=== PATIENT | male | born 1950 | race African-American/Black ===

== ENCOUNTER 2023-04-25 07:22 | Inpatient (IN) | payer OTHER ==
[~2023-04-25] VITALS: Ht 167.6 cm; Wt 71.2 kg
--- NOTE | 2023-04-25 07:35 | NUR ---
FELISHARA79 FOUND WANDERING OUTSIDE DAUGHTER'S APARTMENT, BLOOD SUGAR 121. WELL KNOWN TIME 1HOUR PTC. DR BELL AT BEDSIDE FOR EVAL
--- NOTE | 2023-04-25 07:38 | NUR ---
joann drawn and sent to lab
--- NOTE | 2023-04-25 07:45 | NUR ---
PROVIDED PT WITH URINAL AWAITING URINE SAMPLE
[2023-04-25] MEDS ORDERED: IV NS 0.9% 1,000 ML BAG IV ONE (08:00)
[2023-04-25 08:01] LABS: BASOPHILS % (AUTO) 0.5 % (0.0-2.0); EOSINOPHILS % (AUTO) 0.5 % (0.0-6.0); HEMATOCRIT 39 % (39-51); HEMOGLOBIN 12.3 g/dL (13.5-17.5); LYMPHOCYTES % (AUTO) 15.7 % (20.0-44.0); MEAN CORPUSCULAR HGB CONC 32 g/dl (31.0-36.0); MEAN CORPUSCULAR VOLUME 96 fL (80-96); MONOCYTES # (AUTO) 0.7 K/uL (0.1-1.30); MONOCYTES % (AUTO) 11.3 % (2.0-12.0); NEUTROPHILS # (AUTO) 4.7 K/uL (1.8-8.9); PLATELET COUNT (AUTO) 306 K/uL (150-450); RED BLOOD CELL COUNT(AUTO) 4.05 MIL/uL (4.5-6.0); WHITE BLOOD COUNT (AUTO) 6.5 K/uL (4.3-11.0)
--- NOTE | 2023-04-25 08:30 | NUR ---
GLUCOSE CHECKED 108 PER LAB Patient is resting comfortably in bed with eyes closed. Easily aroused. VSS
[2023-04-25 08:31] LABS: CALCIUM, SERUM 9.5 mg/dL (8.5-10.1); CARBON DIOXIDE 27 mmol/L (21-32); CHLORIDE 103 mmol/L (98-107); CREATININE 1.3 mg/dL (0.6-1.3); GLUCOSE 120 mg/dL (74-106); POTASSIUM 3.4 mmol/L (3.5-5.1); SODIUM SERUM 139 mmol/L (136-145); UREA NITROGEN, BLOOD 23 mg/dL (7-18)
[2023-04-25 08:33] LABS: SERUM AMMONIA 8 umol/L (11-32)
[2023-04-25 08:37] LABS: ALANINE AMINOTRANSFERASE 21 U/L (12-78); ALBUMIN 4.1 g/dL (3.4-5.0); ALKALINE PHOSPHATASE 78 U/L (46-116); ASPARTATE AMINOTRANSFERASE 19 U/L (15-37); BILIRUBIN,DIRECT 0.4 mg/dL (0.0-0.2); BILIRUBIN,TOTAL 2.3 mg/dL (0.2-1.0); TOTAL PROTEIN, SERUM 7.8 g/dL (6.4-8.2)
--- NOTE | 2023-04-25 08:40 | NUR ---
PT TO CT VIA MARIE
--- NOTE | 2023-04-25 08:40 | NUR ---
PT TAKEN TO CT VIA MARIE
[2023-04-25 08:47] LABS: ALCOHOL, BLOOD < 3 mg/dL (0-10)
--- NOTE | 2023-04-25 08:48 | NUR ---
PT RETURNED TO ER BED [address]
[2023-04-25 08:58] LABS: BILIRUBIN,URINE 1+ (NEGATIVE); COLOR,URINE DARK YELLOW (YELLOW); LEUKOCYTE ESTERASE ,URINE NEGATIVE (NEGATIVE); NITRITE, URINE NEGATIVE (NEGATIVE); PROTEIN,URINE 1+ mg/dl (NEGATIVE); UGLUCOSE NEGATIVE (NEGATIVE)
--- NOTE | 2023-04-25 09:08 | NUR ---
PT BACK FROM CT
[2023-04-25 09:10] LABS: THYROID STIMULATING HORMONE 2.087 uIU/mL (0.358-3.74)
[2023-04-25 09:18] LABS: BACTERIA,URINE Rare /HPF (None Seen); RBC,URINE 0-2 /HPF (0-2); SQUAMOUS EPITHELIAL CELL,UR Few /HPF (None Seen); WBC,URINE 0-2 /HPF (0-3)
--- NOTE | 2023-04-25 09:45 | NUR ---
at bedside with jose g looking a number of her daugther.
--- NOTE | 2023-04-25 10:26 | NUR ---
JUST TALKED TO ADMITTING, STILL INVESTIGATING HOW TO GET IN TOUCH WITH THE DAUGTHER.
--- NOTE | 2023-04-25 11:07 | NUR ---
PER TERRIE ORLANDO ([phone]) WHO CLAIMS TO BE THE PATIENT`S TENANT STATES THAT THE PATIENT`S CURRENT ADDRESS IS [address] [place] [address]. PER MR PERRY THE PATIENT HAS SON, DAUGHTER AND EX- BUT HE DOES NOT HAVE ANY CONTACT INFORMATION.
--- NOTE | 2023-04-25 11:20 | NUR ---
DR BELL NOTIFIED REGARDING STATUS OF FAMILY WHEREABOUTS, NO SUCCESS. ONLY A NEIGHBOR ANSWERED, BUT NOT A CAREGIVER FOR THE PATIENT.
--- NOTE | 2023-04-25 11:20 | NUR ---
COVID SWAB DONE SENT TO LAB.
--- NOTE | 2023-04-25 13:04 | NUR ---
EMT AT BEDSIDE FOR MRSA SWAB, SENT TO LAB.
[2023-04-25] MEDS ORDERED: ACETAMINOPHEN 325 MG TABLET PO PRN (14:00)
[2023-04-25] MEDS ORDERED: MAGNESIUM HYDROXIDE 30 ML UDC PO PRN (14:00)
[2023-04-25] MEDS ORDERED: ONDANSETRON HCL/PF 4 MG/2 ML VIAL IVP PRN (14:00)
[2023-04-25] MEDS ORDERED: MAG HYDROX/AL HYDROX/SIMETH 30 ML UDC PO PRN (14:00)
[2023-04-25] MEDS ORDERED: HYDROCODONE/APAP 5/325MG TABLET PO PRN (14:00)
[2023-04-25] MEDS ORDERED: Z GUARD REMEDY 4 OZ OINT TP PRN (14:00)
--- NOTE | 2023-04-25 14:29 | NUR ---
us tech at bedside
--- NOTE | 2023-04-25 14:45 | NUR ---
308-2. ADMITTING MADE AWARE. RACHANA WILL BE RECEIVING NURSE.
--- NOTE | 2023-04-25 14:54 | NUR ---
REPORT GIVEN TO NURSE MIRIAM FOR MARI
--- NOTE | 2023-04-25 15:31 | NUR ---
PT [facility]SFERR[facility] TO [facility]IA [facility]
--- NOTE | 2023-04-25 15:35 | NUR ---
NUCLEAR POWERPLANT MECHANIC HELPER NOTES PT ARRIVED AT UNIT AT 1535 VIA GURNEY. PT AMBULATORY WITH ASSISTANCE. PRE VITALS WERE TAKEN. PT ALERT/ORIENTED X1-2 WITH CONFUSION. SKIN INTACT. STABLE ON ROOM AIR. PT IS FULL CODE WITH NO KNOWN ALLERGIES. ALL BELONGINGS CHECKED AND RECONCILED. IV ACCESS OON LAC #20 G SL. FALL SAFETY MEASURES IN PLACED. BED LOCKED IN LOWEST POSITION. SIDE RAILS UP X2. CALL LIGHT WITHIN EASY REACH. WILL CONTINUE TO MONITOR.
[2023-04-25] MEDS: IV 1/2NS 1000 ML 1,000 ML IV PRN (16:26)
--- NOTE | 2023-04-25 18:43 | NUR ---
MS RN CLOSING NOTES PT RESTING IN BED, ALERT/ORIENTED X1-2, CONFUSED. IV ACCESS ON LAC #20 G RUNING 0.45% NS AT 75 ML/HR. NO DISTRESS NOTED. FALL SAFETY MEASURES IN PLACED. BED LOCKED IN LOWEST POSITION. SIDE RAILS UP X2. CALL LIGHT WITHIN REACH. WILL ENDORSE TO NEXT SHIFT
--- NOTE | 2023-04-25 19:45 | NUR ---
MS RN OPENING NOTE PATIENT SLEEPING IN BED, EASILY AWAKENED, PT ALERT/ORIENTED X 1-2. PATIENT STABLE ON RA, NO S/S OF DISTRESS OR SOB NOTED, BREATHING EVEN AND UNLABORED. IV ACCESS ON LAC #20G INTACT AND INFUSING 1/2 NS @ 75 ML/HR. SAFETY MEASURES IN PLACE: CALL LIGHT AND BEDSIDE TABLE WITHIN REACH, SIDE RAILS UP X 2, BED LOCKED IN LOWEST POSITION, HOB ELEVATED, BED ALARM ON. WILL CONTINUE TO MONITOR PATIENT
[2023-04-25 20:00] VITALS: BP 151/85
[2023-04-26 06:03] LABS: BASOPHILS % (AUTO) 0.9 % (0.0-2.0); EOSINOPHILS % (AUTO) 3.8 % (0.0-6.0); HEMATOCRIT 37 % (39-51); HEMOGLOBIN 11.9 g/dL (13.5-17.5); LYMPHOCYTES # (AUTO) 1.4 K/uL (0.8-4.8); LYMPHOCYTES % (AUTO) 38.8 % (20.0-44.0); MEAN CORPUSCULAR HGB CONC 32 g/dl (31.0-36.0); MEAN CORPUSCULAR VOLUME 95 fL (80-96); MONOCYTES # (AUTO) 0.6 K/uL (0.1-1.30); MONOCYTES % (AUTO) 15.7 % (2.0-12.0); NEUTROPHILS # (AUTO) 1.5 K/uL (1.8-8.9); NEUTROPHILS % (AUTO) 40.8 % (43.0-81.0); PLATELET COUNT (AUTO) 280 K/uL (150-450); WHITE BLOOD COUNT (AUTO) 3.6 K/uL (4.3-11.0)
[2023-04-26 06:41] LABS: CALCIUM, SERUM 9.1 mg/dL (8.5-10.1); CARBON DIOXIDE 25 mmol/L (21-32); CHLORIDE 107 mmol/L (98-107); CREATININE 1.2 mg/dL (0.6-1.3); GLUCOSE 85 mg/dL (74-106); MAGNESIUM 2.1 mg/dL (1.8-2.4); PHOSPHORUS 3.7 mg/dL (2.5-4.9); SODIUM SERUM 141 mmol/L (136-145); UREA NITROGEN, BLOOD 19 mg/dL (7-18)
--- NOTE | 2023-04-26 06:46 | NUR ---
MS RN CLOSING NOTE PATIENT SLEEPING IN BED, EASILY AWAKENED, PT ALERT/ORIENTED X 2, FORGETFUL/CONFUSED AT TIMES. PATIENT STABLE ON RA, NO S/S OF DISTRESS OR SOB NOTED, BREATHING EVEN AND UNLABORED. IV ACCESS ON RAC #20G INTACT AND INFUSING 1/2 NS @ 75 ML/HR. NO SIGNIFICANT CHANGES THIS SHIFT, MEDICATIONS GIVEN ORDERED, PT NEEDS MET THROUGHOUT SHIFT. PATIENT AMBULATED TO BATHROOM WITH SBA. SAFETY MEASURES IN PLACE: CALL LIGHT AND BEDSIDE TABLE WITHIN REACH, SIDE RAILS UP X 2, BED LOCKED IN LOWEST POSITION, HOB ELEVATED, BED ALARM ON. WILL ENDORSE TO DAYSHIFT RN FOR CONTINUITY OF CARE
[2023-04-26 07:00] VITALS: BP 152/84
--- NOTE | 2023-04-26 07:42 | NUR ---
RN OPENING NOTES PATIENT ON BED AWAKE A/O X 1-2. NO SIGN OF PAIN NOTED AT THIS TIME. ON ROOM AIR BREATHING EVENLY AND UNLABORED, NO DISTRESS OF SOB NOTED. IV ACCESS ON RAC #20G INTACT PATENT AND FLUSHING WELL, RUNNING 1/2 NS @ 75 ML/HR. FALL AND SAFETY MEASURE IN PLACE, BED IN LOWEST LOCKED POSITION, BED ALARM ON, CALL LIGHT AND TABLE WITHIN EASY REACH, SIDE RAILS UP X2. WILL CONTINUE TO MONITOR.
[2023-04-26] MEDS: PANTOPRAZOLE 40 MG TABLET.DR PO SCH (08:09)
[2023-04-26] MEDS: IV 1/2NS 1000 ML 1,000 ML IV PRN (10:18)
[2023-04-26 12:47] LABS: BAND % (MANUAL) 6 % (0.0-5.0); BASOPHILS % (MANUAL) 0 % (0.0-2.0); EOSINOPHILS % (MANUAL) 0 % (0-4); LYMPHOCYTES % (MANUAL) 34 % (16-48); MONOCYTES % (MANUAL) 14 % (0-11.0); NEUTROPHILS % (MANUAL) 46 (42-76)
[2023-04-26 16:00] VITALS: BP 131/78
--- NOTE | 2023-04-26 18:34 | NUR ---
RN CLOSING NOTES PATIENT ON BED AWAKE A/O X 1-2. NO SIGN OF PAIN NOTED AT THIS TIME. ON ROOM AIR BREATHING EVENLY AND UNLABORED, NO DISTRESS OF SOB NOTED. IV ACCESS ON RAC #20G INTACT PATENT AND FLUSHING WELL. SCHEDULE MEDICATIONS ADMINISTERED. FALL AND SAFETY MEASURE IN PLACE, BED IN LOWEST LOCKED POSITION, BED ALARM ON, CALL LIGHT AND TABLE WITHIN EASY REACH, SIDE RAILS UP X2. ALL NEEDS ATTENDED AND ANTICIPATED. WILL ENDORSE TO PHOTO BOOTH OPERATOR NURSE.
--- NOTE | 2023-04-26 19:30 | NUR ---
MS RN OPENING NOTE PATIENT SLEEPING IN BED, EASILY AWAKENED, PT ALERT/ORIENTED X 1-2, FORGETFUL/CONFUSED. PATIENT STABLE ON RA, NO S/S OF DISTRESS OR SOB NOTED, BREATHING EVEN AND UNLABORED. IV ACCESS ON RAC #20G INTACT AND SALINE LOCKED. SAFETY MEASURES IN PLACE: CALL LIGHT AND BEDSIDE TABLE WITHIN REACH, SIDE RAILS UP X 2, BED LOCKED IN LOWEST POSITION, HOB ELEVATED, BED ALARM ON. WILL CONTINUE TO MONITOR PATIENT
[2023-04-26 20:45] VITALS: BP 153/91
--- NOTE | 2023-04-27 06:57 | NUR ---
MS RN CLOSING NOTE PATIENT SLEEPING IN BED, EASILY AWAKENED, PT ALERT/ORIENTED X 2, FORGETFUL/CONFUSED AT TIMES. PATIENT STABLE ON RA, NO S/S OF DISTRESS OR SOB NOTED, BREATHING EVEN AND UNLABORED. IV ACCESS ON RAC #20G INTACT AND SALINE LOCKED. NO SIGNIFICANT CHANGES THIS SHIFT, PT NEEDS MET THROUGHOUT SHIFT. PATIENT AMBULATED TO BATHROOM WITH SBA. SAFETY MEASURES IN PLACE: CALL LIGHT AND BEDSIDE TABLE WITHIN REACH, SIDE RAILS UP X 2, BED LOCKED IN LOWEST POSITION, HOB ELEVATED, BED ALARM ON. WILL ENDORSE TO DAYSHIFT RN FOR CONTINUITY OF CARE
[2023-04-27 07:00] VITALS: BP 150/90
[2023-04-27] MEDS: PANTOPRAZOLE 40 MG TABLET.DR PO SCH (07:59)
--- NOTE | 2023-04-27 08:03 | NUR ---
MS RN OPENING NOTE RECEIVED PATIENT SLEEPING IN BED, EASILY AROUSED, AOX1-2, CONFUSED/FORGETFUL, CALM, ABLE TO MAKE NEEDS KNOWN AND FOLLOWED SIMPLE COMMANDS. ON ROOM AIR WITHOUT ANY DIFFICULTY, NO S/S OF DISTRESS OR SOB NOTED. IV ACCESS ON RFA G#20, CLEAN, PATENT, INTACT AND SALINE LOCKED. DENIED PAIN NOR DISCOMFORT AT THE MOMENT. SAFETY MEASURES IN PLACE: BED LOCKED AND IN LOWEST POSITION, HOB ELEVATED, CALL LIGHT AND BEDSIDE TABLE WITHIN REACH, SIDE RAILS UP X 2, BED ALARM ON. WILL CONTINUE TO MONITOR.
[2023-04-27 16:12] VITALS: BP 149/87
--- NOTE | 2023-04-27 17:37 | NUR ---
RN NOTES - PATIENT IS ADAMANT TO LEAVE, STILL ALTERED, UNABLE TO SAY DATE/TIME AND LOCATION. REFUSED CAROTID BUT AGREED TO DO 2D ECHO.
--- NOTE | 2023-04-27 17:44 | NUR ---
RN NOTES - PATIENT MENTIONED HE LIVE AT [address] [place], [place] [id number]. CHARGE NURSE AND AWARE.
--- NOTE | 2023-04-27 17:46 | NUR ---
RN NOTES - DR ALEGRIA ORDERED HALDOL 2MG IM ONCE FOR AGITATION/COMBATIVE BEHAVIOR
[2023-04-27] MEDS ORDERED: HALOPERIDOL LACTATE INJ 5 MG/ML VIAL IM ONE (18:00)
[2023-04-27] MEDS ORDERED: HALOPERIDOL LACTATE INJ 5 MG/ML VIAL IM PRN (18:30)
--- NOTE | 2023-04-27 18:51 | NUR ---
MS RN CLOSING NOTE PATIENT SITTING ON THE EDGE OF THE BED, AWAKE, AOX1-2, CONFUSED/FORGETFUL, COOPERATIVE, FOLLOWED SIMPLE COMMANDS. ON ROOM AIR WITHOUT ANY DIFFICULTY, STILL WITH NO S/S OF DISTRESS OR SOB NOTED. IV ACCESS ON RFA G#20 SALINE LOCKED. NO COMPLAINTS OF PAIN NOR DISCOMFORT. WILL ENDORSE HALDOL IM PRN TO THE NURSE ORDERED BY MD IN CASE PT WANTS TO LEAVE. ALL NEEDS MET, ALL DUE MEDS GIVEN. SAFETY MEASURES MAINTAINED: BED LOCKED AND IN LOWEST POSITION, HOB ELEVATED, CALL LIGHT AND BEDSIDE TABLE WITHIN REACH, SIDE RAILS UP X 2, BED ALARM ON. WILL ENDORSE TO SERVICES ENGINEER NURSE.
--- NOTE | 2023-04-27 19:29 | NUR ---
RN NOTES - PATIENT GAVE [phone] PHONE NUMBER FOR MS PURVI LANIER, "EX MOTHER IN LAW", CALLED THE NUMBER AND SPOKE TO MS. LANIER, CONFIRMED THAT SHE KNOWS THE PATIENT AND WILL CALL THE CLOSEST RELATIVE, GIVEN THE NUMBER TO [phone] TO CALL BACK. RELAYED TO THE NURSE.
--- NOTE | 2023-04-27 19:37 | NUR ---
MS RN OPENING NOTES - RECEIVED PATIENT LAYING IN BED AWAKE. A/O X1-2, CONFUSED AND WANTS TO LEAVE THE HOSPITAL. CAN BE REDIRECTED AT THIS TIME. BREATHING EVEN AND NON-LABORED ON ROOM AIR. NO C/O PAIN OR DISCOMFORT. UNABLE TO CHECK IV ACCESS PATIENT IS WEARING HIS OWN CLOTHES AND EASILY AGITATED. SAFETY PRECAUTIONS IN PLACE: BED LOCKED AND IN LOW POSITION, SIDE RAILS UP X2, CALL LIGHT WITHIN REACH. WILL CONTINUE PLAN OF CARE.
[2023-04-27 20:00] VITALS: BP 122/104
--- NOTE | 2023-04-27 20:30 | NUR ---
RECEIVED CALL FROM GEREMIAS LANIER (EX-) TEL#: [phone]. SHE SAID PATIENT IS CURRENTLY HOMELESS, HIS DAUGHTER LIVES IN [place] AND ADDRESS [address] [place] [address] IS WHERE HE USED TO LIVE. SHE ALSO SAID THAT PATIENT HAS BEEN HAVING HALLUCINATIONS THAT PEOPLE ARE FOLLOWING HIM AND IT HAS BEEN GOING ON FOR A WHILE. SHE TOOK HIM TO A PSYCH DOCTOR BUT IT DIDN'T HELP. SHE ALSO REQUESTED IF WE CAN GIVE HIM SOMETHING TO CALM HIM DOWN AND NOT LEAVE THE HOSPITAL WELL SOCIAL SERVICE CONSULT FOR PLACEMENT. SS CONSULT ALREADY ORDERED. WILL GET AN ORDER FOR A PSYCH CONSULT.
--- NOTE | 2023-04-27 20:43 | NUR ---
HOSPITALIST TONI ORDERED PSYCH CONSULT AND ATIVAN 1MG IV Q6H PRN. NOTED AND CARRIED OUT.
[2023-04-27] MEDS ORDERED: LORAZEPAM INJ 2 MG/ML VIAL IV PRN (21:00)
--- NOTE | 2023-04-28 06:51 | NUR ---
MS RN CLOSING NOTES - PATIENT RESTING IN BED, ABLE TO VERBALIZE NEEDS. NO RESPIRATORY OR CARDIAC DISTRESS. NO SOB OR NOTED. QUIET AND SLEPT THROUGHOUT THE NIGHT. AFEBRILE. RIGHT FOREARM IV ACCESS INTACT, PATENT AND FLUSHING. ALL NEEDS ATTENDED AND ANTICIPATED. AMBULATORY AND INDEPENDENT WITH ADLS. SAFETY PRECAUTIONS MAINTAINED. WILL ENDORSE TO AM RN FOR MARI.
[2023-04-28] MEDS: PANTOPRAZOLE 40 MG TABLET.DR PO SCH (07:36)
--- NOTE | 2023-04-28 07:40 | NUR ---
MS RN OPENING NOTES RECEIVED PATIENT IN BED, AWAKE. A/O X1-2, CONFUSED AND WANTS TO LEAVE THE HOSPITAL. CAN BE REDIRECTED AT THIS TIME. WITH EVEN AND NON-LABORED BREATHING, ON ROOM AIR. NO COMPLAINTS OF PAIN OR DISCOMFORT. IV AT RFA#20G, SL. SAFETY PRECAUTIONS IN PLACE: BED LOCKED AND IN LOW POSITION, SIDE RAILS UP X2, CALL LIGHT WITHIN REACH. WILL CONTINUE PLAN OF CARE.
[2023-04-28 08:00] VITALS: BP 150/82
--- NOTE | 2023-04-28 08:32 | NUR ---
RN NOTES VITAL SIGNS CHECKED, BP OF 150/80. NO STANDING BP MEDS. INFORMED DR. WAYNE.
[2023-04-28] MEDS ORDERED: AMLODIPINE BESYLATE 5 MG TABLET PO SCH (09:00)
--- NOTE | 2023-04-28 09:22 | NUR ---
RN NOTES DR. WAYNE ORDERED AMLODIPINE 5MG PO DAILY. ORDER NOTED AND CARRIED OUT.
--- NOTE | 2023-04-28 14:23 | NUR ---
"SW Consult: SW consult requested for patient possible homelessness. Patient was cooperative with this signwriter while conducting the assessment. Patient brought to the hospital due to altered mental status. Patient was brought in due to cellulitis. Patient presents alert and oriented x3 (self,place,time). Patient reported that he has been homeless for about 4 years and has been living on the streets. He stated that he has been living in his car for 4 years near [place]. Pt confirmed the address on the facesheet [address] [place] [address]; ([phone]). Pt stated that he is and has nine children. Treatment team has found pt's ex- Pat number ([phone]), however, pt stated that he does not want the treatment team to contact his ex- nor wants her to be involved in the case. He stated that family is not involved in his care. SW assessed for suicidal or homicidal, pt denied. SW assessed any hallucinations visual/auditory, pt denied. SW assessed for substance abuse and pt denied any use of drugs. SW offered pt resources and pt was accepting of shelters. Pt stated he wants to return back to his car. Tap card be given to pt upon dc. Homeless waiver form placed in the chart. DC PLAN: Patient would want to return back to [address] [place] [address]; ([phone]) near his car. Shelters: [facility] Provider: [employer] [facility] Address: [address] [place], [place] [address]n [facility], [address] # of Beds: 47 Population Served: [facility] | [facility] Laura Stafford [place] Provider: [facility] Address: [address], [address] # of Beds: 66 Population Served: [place] [place] Provider: [facility] Address: [address] [facility], [address] # of Beds: 56 Population Served: Sherri Rousseau Provider: [facility]/ [facility] Address: [address] [facility], [address] # of Beds: 49 Population Served: [place] [facility] 8 | [place] Provider: [facility] Address: [address] # of Beds: 37 Population Served: [employer] Hygiene: [facility]: [address] [address] [place] ; [facility] [address] [facility] ; [facility] [address] [place] . Food Resources: [place] [facility] at [facility]- [address] [place]; Meet Each Need with [facility] ([facility]) [address] [facility] [place]; [facility] [address] [facility]; [facility] [address] [facility]. Mental Health resources provided: [facility] [address] [place], [place] [phone] ; [facility] [address] [facility] [address], [place], [place] [id number] ; [facility] [address] [place], [place] [id number] ; [facility] [address] [place], [place] [address] Healthcare Clinics: [facility] [address] [facility], [address] [place]. [place] ; [facility] [address] [facility] [address] [place] [address]; [facility] [place] [address] [facility]. [place] [phone] Counseling--[facility]patient [facility] [address] [facility], [facility] [place], [place] [address] (Specializes in in-depth psychotherapy for emotional distress: anxiety, depression, interpersonal conflicts, life transitions, childhood abuse) [facility] [address] [place] [address] (Assist with solving problem marital difficulties, separation & divorce, aging parents, & grief, chronic & terminal illness) [facility] [address] [place] [address] (Deal with loss & grief, anxiety, marital difficulties) [facility] [address] [place], [place] [id number] (Provide in-home mental services to people who are incapable of leaving their homes) [facility] [address] [place] [address] [facility] [address] [place], [place] [address] PSYCHIATRIC OUTPATIENT SERVICES [facility] Partial Hospitalization and Intensive Outpatient Program (Managed Care and [place] Only)[address] [address]. [facility] [phone] [facility] Partial Hospitalization and Outpatient [id number] [place], [place] [phone] [facility] Center [id number] [place], [place] [phone] [facility] Partial Hospitalization and Outpatient [id number] [facility] Pardeep Remy [phone] "
--- NOTE | 2023-04-28 15:37 | NUR ---
RN NOTES FACE SHEET FAXED TO [employer], CONFIRMATION RECEIPT FILED TO PATIENT'S CHART. WELFARE PROJECT MANAGER CONNIE CONFIRMED THEY RECEIVED FACE SHEET.
[2023-04-28 16:00] VITALS: BP 146/95
--- NOTE | 2023-04-28 18:35 | NUR ---
MS RN CLOSING NOTES PATIENT IN BED, AWAKE. A/O X1-2, CONFUSED AND WANTS TO LEAVE THE HOSPITAL. CAN BE REDIRECTED AT THIS TIME. WITH EVEN AND NON-LABORED BREATHING, ON ROOM AIR. NO COMPLAINTS OF PAIN OR DISCOMFORT. IV AT RFA#20G, SL. SAFETY PRECAUTIONS IN PLACE: BED LOCKED AND IN LOW POSITION, SIDE RAILS UP X2, CALL LIGHT WITHIN REACH. WILL ENDORSE TO PM SHIFT FOR MARI.
--- NOTE | 2023-04-28 19:29 | NUR ---
MS RN OPENING NOTES - RECEIVED PATIENT IN ROOM, CHECKING THE MECHANICS OF THE BED. CAN BE REDIRECTED EASILY AT THIS TIME. A/O X2, WITH PERIODS OF CONFUSION. BREATHING EVEN AND NON-LABORED ON ROOM AIR. NO C/O PAIN OR DISCOMFORT. HAS RIGHT FOREARM IV ACCESS #20G AND SALINE LOCKED. NO S/S OF INFILTRATION NOTED. SAFETY PRECAUTIONS IN PLACE: BED LOCKED AND IN LOW POSITION, SIDE RAILS UP X2, CALL LIGHT WITHIN REACH. WILL CONTINUE PLAN OF CARE.
[2023-04-28 20:00] VITALS: BP 196/97
[2023-04-28 20:15] VITALS: BP 220/130
--- NOTE | 2023-04-28 20:43 | NUR ---
PATIENT'S BP WAS 196/97 WHILE HE WAS STILL CALM. WHEN I RECHECKED IT MANUALLY, IT'S 220/130. HOWEVER, PATIENT HAS BEEN ROAMING AROUND THE HALLWAY WANTING TO LEAVE AMA. HE IS A/O X1 OF NOW, DOESN'T KNOW HE IS IN [place] AND VERY CONFUSED. PATIENT CAN'T BE REDIRECTED AT THIS TIME AND NON-COMPLIANT. NOTIFIED HOSPITALIST CASIE TO GET A PRN BP MED. HE SAID TO GIVE THE STANDING ORDER OF HALDOL 2MG THEN RECHECK BP. NOTED AND CARRIED OUT. INSTRUCTED PATIENT TO SIT DOWN OR LAY IN BED, HE IS REFUSING AND BECAME AGGRESSIVE. 2 SECURITY GUARDS PRESENT, HELD THE PATIENT IN THE BED AND I ADMINISTERED THE HALDOL 2MG IM LEFT DELTOID. PATIENT INSISTS ON GOING OUT OF HIS ROOM, HE IS WALKING AROUND THE HALLWAY AGAIN. WILL CONTINUE TO MONITOR.
--- NOTE | 2023-04-28 21:07 | NUR ---
PATIENT IS CURRENTLY SITTING IN A CHAIR IN THE HALLWAY. OFFERED SNACKS AND IF HE WANTS TO LAY IN BED, STILL REFUSING.
--- NOTE | 2023-04-28 22:31 | NUR ---
SPOKE WITH NORMA, PATIENT'S SISTER, ASKING FOR UPDATES ON PATIENT'S STATUS. SHE SAID THAT JESUS (EX-) CALLED THEM. SHE AND THE PATIENT'S DAUGHTER LIVE IN [place]. THEY TRIED TO GET HELP FOR HIM BUT HE KEPT REFUSING. SHE SAID THAT THEY HAVE NOTICED HE IS GETTING CONFUSED A LOT AND NOT KNOWING WHERE HE IS AT. SHE SAID WE CAN CONTACT HER FOR ANY EMERGENCY. SHE SAID PATIENT DOESN'T HAVE AN ADVANCE DIRECTIVE OR POA.
--- NOTE | 2023-04-29 00:14 | NUR ---
RECHECKED BP 218/112. NOTIFIED HOSPITALIST CASIE AND ORDERED HYDRALAZINE 10MG IVP Q8H PRN FOR SBP >160. NOTED AND CARRIED OUT.
[2023-04-29] MEDS ORDERED: hydrALAZINE HCL IV 20 MG VIAL IV PRN (00:30)
[2023-04-29 04:19] VITALS: BP_SYST 130; BP_SYST 150; BP_SYST 180; BP_DIAS 100; BP_DIAS 90
--- NOTE | 2023-04-29 06:43 | NUR ---
MS RN CLOSING NOTES - PATIENT IN ROOM, ABLE TO VERBALIZE NEEDS. CONFUSED AND NEEDS FREQUENT REORIENTATION. HE CALMED DOWN AFTER GIVING HALOPERIDOL 2MG IM BUT DID NOT SLEEP. KEPT WALKING AROUND THE HALLWAY. NO SOB OR NOTED. TOLERATING ROOM AIR WELL. AFEBRILE. RIGHT FOREARM IV ACCESS INTACT, PATENT AND FLUSHING. ALL DUE MEDS GIVEN AND NEEDS ATTENDED. SITTER REQUESTED. SAFETY PRECAUTIONS MAINTAINED. WILL ENDORSE TO AM RN FOR MARI.
[2023-04-29 08:46] VITALS: BP 140/86
[2023-04-29] MEDS: PANTOPRAZOLE 40 MG TABLET.DR PO SCH (08:46)
[2023-04-29] MEDS ORDERED: AMLODIPINE BESYLATE 10 MG TABLET PO SCH (09:00)
[2023-04-29] MEDS ORDERED: LISINOPRIL (10MG) 10 MG TABLET PO SCH (09:00)
--- NOTE | 2023-04-29 11:21 | NUR ---
GREGORY Family Contact: GREGORY contacted pt's sister ([phone]) and left a detailed voicemail.
--- NOTE | 2023-04-29 11:41 | NUR ---
GREGORY Note: SW spoke with pt and pt stated that he receives $800.00 of income and would want this expert medical writer to find a B & [facility].
--- NOTE | 2023-04-29 11:41 | NUR ---
Facility Contact: SW spoke with Traci lira ([phone]) who stated that she can accept pt. She will provide information within the next hour of pt's accepting B & [facility].
--- NOTE | 2023-04-29 11:59 | NUR ---
Family Contact: SW received a call from sister Hermelindo Colbert ([phone]) who stated that pt has been homeless and has been living in his car. Sister was concerned and stated that she is agreeable of B & C for pt.
--- NOTE | 2023-04-29 12:43 | NUR ---
GREGORY Discharge Note: Patient accepted at [facility] [place] [address] [place] [address]; ([phone]). Traci lira [phone], accepted pt. Facility Brandyn will picking table worker pt at 2PM. GREGORY notified García Charge nurse. Patient's sister Hermelindo ([phone]) is aware and agreeable.
[2023-04-29] MEDS ORDERED: LISI10TA29 PO (13:07)
[2023-04-29] MEDS ORDERED: AMLO-213 PO (13:07)
--- NOTE | 2023-04-29 13:46 | NUR ---
PATIENT IS GOING TO [facility]. PATIENT'S VS STABLE, AFEBRILE. DENIES ANY PAIN THROUGHOUT THE SHIFT. AMBULATORY WITH STEADY GAIT. PATIENT A/O X1-2, CONFUSED. NEEDS REINFORCEMENT. IV ACCESS REMOVED. ALL BELONGING SENT WITH THE PATIENT. PATIENT'S SISTER AWARE ABOUT THE PLAN FOR DC. PT REFUSING TO SIGN PAPERS.
[2023-04-29] MEDS ORDERED: CYANOCOBALAMIN 1,000 MCG/ML VIAL IM SCH (17:00)
== END 2023-04-29 14:25 | DRG 305 ==
LOC: ER 07:26 → MED 15:11
PROVIDERS: ATTEND Internal Medicine
DX: I16.0 Hypertensive urgency (principal); F03.93 Unspecified dementia, unspecified severity, with mood disturbance; F29 Unspecified psychosis not due to a substance or known physiological condition; E87.6 Hypokalemia; Z20.822 Contact with and (suspected) exposure to COVID-19; E80.6 Other disorders of bilirubin metabolism; Z59.00 Homelessness unspecified; F43.20 Adjustment disorder, unspecified
CPT/HCPCS: 36415; 70450-TC; 71045-TC; 76700-TC; 80048-TC; 80076-TC; 81001; 82140-TC; 82550-TC; 82553; 82607-TC; 82962-TC; 83735-TC; 84100-TC; 84425; 84443-TC; 85025-TC; 87081-TC; 93307-TC; 97112-TC; 97116-TC; 97530-TC; A4223; C9803; G0378; G0480; J0360; J1630; J3420; J3490; J7030; J7042

== ENCOUNTER 2025-10-20 14:07 | Emergency (ER) | payer MEDICARE, OTHER ==
[~2025-10-20] VITALS: Ht 167.6 cm; Wt 68.0 kg
[~2025-10-20 14:07] MED LIST: AMLO-213 PO; LISI10TA29 PO
[2025-10-20 14:10] VITALS: TEMP 98.2
[2025-10-20] MEDS ORDERED: MELA3TAB41 PO (14:33)
[2025-10-20] MEDS ORDERED: POLY15DR31 EACHEYE (14:33)
[2025-10-20] MEDS ORDERED: DOCU100C36 PO (14:33)
[2025-10-20] MEDS ORDERED: BISA10SU11 RC (14:33)
[2025-10-20] MEDS ORDERED: ACET325T53 PO (14:33)
[2025-10-20] MEDS ORDERED: FERR325T24 PO (14:33)
[2025-10-20] MEDS ORDERED: CLON0.1T PO (14:33)
[2025-10-20] MEDS ORDERED: MAGN400O6 PO (14:33)
[2025-10-20] MEDS ORDERED: NA P133E RC (14:33)
[2025-10-20] MEDS ORDERED: DIVA125T32 PO (14:33)
[2025-10-20] MEDS ORDERED: OLAN2.5T3 PO (14:33)
[2025-10-20] MEDS ORDERED: AMLO-212 PO (14:33)
[2025-10-20] MEDS ORDERED: MULT-213 PO (14:33)
[2025-10-20 14:36] LABS: PLATELET COUNT (AUTO) 233 K/uL (150-450); RED BLOOD CELL COUNT(AUTO) 4.25 MIL/uL (4.5-6.0); RED CELL DISTRIBUTION WIDTH 13.4 % (11.5-15.0); WHITE BLOOD COUNT (AUTO) 3.5 K/uL (4.3-11.0)
[2025-10-20 14:49] LABS: CALCIUM, SERUM 9.1 mg/dL (8.5-10.1); CREATININE 1.1 mg/dL (0.6-1.3); SODIUM SERUM 138 mmol/L (136-145); UREA NITROGEN, BLOOD 23 mg/dL (7-18)
[2025-10-20 14:51] LABS: ALCOHOL, BLOOD < 3 mg/dL (0-10); ASPARTATE AMINOTRANSFERASE 9 U/L (15-37); TOTAL PROTEIN, SERUM 8.1 g/dL (6.4-8.2)
[2025-10-20 15:48] LABS: APPEARANCE,URINE CLEAR (CLEAR); BLOOD, URINE TRACE-INTA Ery/uL (NEGATIVE); LEUKOCYTE ESTERASE ,URINE NEGATIVE (NEGATIVE); NITRITE, URINE NEGATIVE (NEGATIVE); UGLUCOSE NEGATIVE (NEGATIVE)
[2025-10-20 15:57] LABS: AMPHETAMINE, URINE NEGATIVE (NEGATIVE); BARBITURATE, URINE NEGATIVE (NEGATIVE); BENZODIAZEPINE, URINE NEGATIVE (NEGATIVE); CANNABINOID, URINE NEGATIVE (NEGATIVE); COCCAINE, URINE NEGATIVE (NEGATIVE); OPIATE, URINE NEGATIVE (NEGATIVE)
[2025-10-20 16:34] LABS: ADD URINE CULTURE NO; SQUAMOUS EPITHELIAL CELL,UR 0-2 /HPF (None Seen)
[2025-10-20 18:00] VITALS: BP 135/80; O2SAT 97
== END 2025-10-20 19:00 ==
LOC: ER 14:16
DX: R45.6 Violent behavior (principal); I10 Essential (primary) hypertension; Z79.899 Other long term (current) drug therapy
CPT/HCPCS: 36415; 80048-TC; 80076-TC; 81001; 85025-TC; 87081-TC; G0480